=== PATIENT | female | born 1975 | race Two or more races ===

== ENCOUNTER 2021-10-23 12:02 | Emergency (ER) | payer SELFPAY ==
[2021-10-23 12:30] VITALS: BP 141/85; PULSE 80; RESP 16; TEMP 36.8; O2SAT 100
--- NOTE | 2021-10-23 12:54 | ED.GENADULT ---
HPI - General Adult General Chief complaint: Urogenital-Female Stated complaint: Lower Back Pain,Possible UTI Source: patient Mode of arrival: ambulatory Limitations: no limitations History of Present Illness HPI narrative: Pleasant 46 y/o female. PMHx Non-contributory. Presents to [facility] today with acute complaints of urinary frequency, bladder 'pressure', as well as generalized lower back pain for the past 72 hours. She notes a concern for possible UTI. No fevers, chills. Denies abdominal pain, N/V. No hematuria has been relayed. She describes her back pain as generalized aching, not isolated to unilateral flanks. No vaginal discharge or pelvic pain. Client has been taking OTC cranberry pills with subtherapeutic relief. She is without additional acute c/o illness upon PE. Related Data Allergies Allergy/AdvReac Type Severity Reaction Status Date / Time Penicillins Allergy Unknown Verified 10/23/21 12:39 Review of Systems Review of Systems: CONSTITUTIONAL: Denies fever, chills, sweats. EYES: Denies visual changes, redness, discharge. ENT: Denies rhinorrhea, congestion, sore throat, otalgia. CARDIOVASCULAR: Denies chest pain, palpitations, edema. RESPIRATORY: Denies dyspnea, wheezing, cough GASTROINTESTINAL: Denies abdominal pain, nausea, vomiting, diarrhea. GENITOURINARY: Denies dysuria, hematuria, abnormal discharge. Positive urinary frequency and pressure. SKIN: Denies rash or itching. MUSCULOSKELETAL:back pain. No joint pain, or myalgia. NEUROLOGIC: Denies numbness, or focal weakness. PSYCHIATRIC: Denies anxiety or depression. All systems reviewed & are unremarkable except as noted in HPI and below Exam Narrative: GENERAL: This is a well-nourished, well-developed adult, in no apparent distress. HEAD: normocephalic, atraumatic. EYES: PERRL. Sclera clear/white. EARS: External ears normal, auditory canals clear and without drainage, TMs normal. NOSE: External nose normal. No obstruction, nares patent. THROAT: Mucous membranes moist, posterior pharynx clear. No exudates. NECK: Neck supple, non-tender without lymphadenopathy, masses or thyromegaly. CARDIOVASCULAR: Regular rate and rhythm without murmurs, gallops, or rubs. RESPIRATORY: Clear to auscultation. Breath sounds equal bilaterally. No wheezes, rales, or rhonchi. GASTROINTESTINAL: Abdomen soft, non-tender, nondistended. Bowel sounds are active. No guarding. No CVA tenderness. No signs of acute abdomen. SKIN: warm, intact with no suspicious lesions or rash, good texture and turgor. NEURO: Alert, active, and age appropriate. No focal neurologic deficits. EXTREMITIES: Negative. Course Course Level of Care: Express Care Visit Vital Signs Vital signs: Vital Signs Temperature 36.8 C 10/23/21 12:30 Pulse Rate 80 10/23/21 12:30 Respiratory Rate 16 10/23/21 12:30 Blood Pressure 141/85 H 10/23/21 12:30 Pulse Oximetry 100 10/23/21 12:30 Temperature 36.8 C 10/23/21 12:30 Pulse Rate 80 10/23/21 12:30 Respiratory Rate 16 10/23/21 12:30 Blood Pressure 141/85 H 10/23/21 12:30 Pulse Oximetry 100 10/23/21 12:30 The patient has been informed that they may have pre-hypertension or Hypertension based on a BP reading in the clinic. It is recommended that the patient call the primary care provider listed on their discharge instructions or a physician of their choice as soon as possible (within 1-2week) to arrange follow up for further evaluation of possible pre-hypertension or hypertension. Medical Decision Making MDM Narrative Medical decision making narrative: -Urinary manifestations > 48 hours. -Afebrile, non-tachycardic, appears non-toxic. -No signs of acute abdomen, no appreciable CVA tenderness. -Urine Dipstick positive leukocytes. Sent for Cx analysis. -Macrobid 100 PO BID X 10 days, pending Cx reports. -IBU 800 PO TID PRN. -PCP F/U 1WK. -ER W/Emergent health status changes. Client agrees. Differential Diagnosis
== END 2021-10-23 12:59 | disposition home or self-care (01) ==
PROVIDERS: Emergency Provider Nurse Practitioner Adult Health
DX: N39.0 Urinary tract infection, site not specified (principal)
CPT/HCPCS: 81003; 87086; 99203; G0463

== ENCOUNTER 2023-12-25 12:00 | Emergency (ER) | payer OTHER, SELFPAY ==
[2023-12-25 12:16] VITALS: BP 121/78; PULSE 69; RESP 20; TEMP 36.6; O2SAT 98
--- NOTE | 2023-12-25 12:19 | ED.EYEPROB ---
HPI - Eye Problem General Chief complaint: Eye Problems Stated complaint: rt eye irritation Time Seen by Provider: 12/25/23 12:26 Source: patient Mode of arrival: ambulatory Limitations: no limitations History of Present Illness HPI Narrative: 48-year-old female presented for complaint of right upper eyelid swelling since yesterday morning. She states she woke up to find eye swollen. She endorses mild tenderness when she touches the inner canthus of the eye. Denies injury, allergies, or changes to any makeup. She denies significant drainage, vision changes, photophobia, or itching. No treatment prior to arrival. Does not wear contact lenses. chief complaint: eye pain Related Data Home Medications Medication Instructions Recorded Confirmed sumatriptan succinate 100 mg tablet 100 mg PO PRN PRN Migraine Headache 12/25/23 12/25/23 Allergies Allergy/AdvReac Type Severity Reaction Status Date / Time Penicillins AdvReac Mild Hives Verified 12/25/23 12:14 Review of Systems Review of Systems: CONSTITUTIONAL: Denies body aches, fever, chills EYES:Endorses swelling, redness to right eye; denies FB sensation, photophobia, pain, visual changes ENT: Denies rhinorrhea, congestion, sore throat, or otalgia. CARDIOVASCULAR: Denies chest pain, palpitations RESPIRATORY: Denies cough or dyspnea. SKIN: Denies rash, itching, or wounds. MUSCULOSKELETAL: Denies back pain, joint pain, or myalgia. NEUROLOGIC: Denies headache, numbness, tingling, or weakness. All systems reviewed & are unremarkable except as noted in HPI and below PMFSH Comments At time of signature, I have reviewed and agree with nursing past medical, surgical, social and family history unless otherwise noted. Please see nursing chart for further information. There is no relevant family history pertinent to the presenting complaint Exam Narrative: GENERAL: Well-appearing HEAD: Normocephalic, atraumatic. EYES: mild right conjunctival injection and yellow drainage, moderate right upper eye lid swelling without apparent stye formation; mild tenderness with palpation to inner canthus, mild dry scaly skin to inner canthus. PERRLA, EOMI. Lid eversion shows no foreign body. ENT: Mucous membranes pink and moist. No rhinorrhea. CHEST: Clear to auscultation. HEART: Regular rate and rhythm. ABDOMEN: Soft, nontender, nondistended SKIN: Warm, dry, no rash. Normal skin turgor. NEURO: No focal deficits. Alert and oriented x3 PSYCH: Normal affect. Course Course Emergency Course: Patient is aware of diagnosis, understands and agrees to treatment plan. Anticipatory guidance given. Patient agrees to follow-up as directed and is aware of reasons to seek care at the emergency department. Portions of this record may have been created with voice recognition software Level of Care: Express Care Visit Vital Signs Vital signs: Vital Signs Temperature 97.8 F 12/25/23 12:16 Pulse Rate 69 12/25/23 12:16 Respiratory Rate 20 12/25/23 12:16 Blood Pressure 121/78 12/25/23 12:16 Pulse Oximetry 98 12/25/23 12:16 Oxygen Delivery Room Air 12/25/23 12:16 Temperature 97.8 F 12/25/23 12:16 Pulse Rate 69 12/25/23 12:16 Respiratory Rate 20 12/25/23 12:16 Blood Pressure 121/78 12/25/23 12:16 Pulse Oximetry 98 12/25/23 12:16 Oxygen Delivery Room Air 12/25/23 12:16 MDM - Eye Problem MDM Narrative Medical decision making narrative: Discussed physical exam findings and possible etiologies; no apparent stye, will treat for conjunctivitis. Advised supportive measures and signs/symptoms to go to the ER. Pt is appropriate for outpt treatment and f/u. Differential Diagnosis Differential diagnosis: Likely corneal abrasion, conjunctivitis, acute iritis, periorbital cellulitis and other Discharge Plan Discharge Clinical Impression: Swelling of eyelid Qualifiers: Laterality: right Qualified Code(s): H02.843 - Edema of right eye, u
== END 2023-12-25 12:41 | disposition home or self-care (01) ==
PROVIDERS: Emergency Provider Nurse Practitioner Family; PCP Family Medicine
DX: H02.841 Edema of right upper eyelid (principal); E78.00 Pure hypercholesterolemia, unspecified; I10 Essential (primary) hypertension; Z86.16 Personal history of COVID-19; K21.9 Gastro-esophageal reflux disease without esophagitis; G25.81 Restless legs syndrome
CPT/HCPCS: 99213; G0463

== ENCOUNTER 2025-05-10 11:00 | Outpatient (RCR) | payer OTHER, SELFPAY ==
--- NOTE | 2025-03-18 16:09 | PTOPEVAL1 ---
Assessment and note entered by Breana Oreilly, PT Evaluation Information Assessment Status Evaluation Diagnosis mid back pain ICD-10 Condition Codes (PT) Pain in Thoracic Spine M54.6 Onset 2019 Subjective Information Pt presents to physical therapy this date with reports of mid back pain that worsens with prolonged activity. She reports the discomfort is on the R side of her back near her bra-line. With prolonged walking, standing, or activities around her home especially vacuuming greater than 30 minutes the pain becomes unbearable. She reports the discomfort is sharp in nature and often radiates to the front of her ribcage. She also reports the pain can shoot up toward her shoulder. She notes improvements in pain if she lays supine on a hard surface. 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 She denies a certain mechanism of injury but thinks the years of cleaning relates to her pain. She gets none to mild relief with muscle relaxers, has not sought other means of treatment prior to todays session. She reports she has to wait until she completes PT before her insurance will approve the MRI. Reported Pain Level Pain Score 4: Self Report Assessment PT Clinical Summary Pt presents to clinic this date with reports of chronic mid back pain of insidious onset starting back in 2019. The patient demonstrates posterior chain weakness, abnormal posture, limited thoracic ROM, and pain with functional movements that limit her ability to perform ADLs. The pt. would benefit from continued skilled physical therapy services tp address the above listed deficits and return to her PLOF. HEP instructed and written handout provided, exercise was tolerated well with no adverse effects to note post-session. Pt was educated on importance of adherence to HEP. Pt was also educated on anatomy, prognosis, home modalities, and PT POC. Plan of Care Interventions Electrical Stimulation,Gait Training,Hot Pack/Cold Pack,Manual Therapy,Neuro Re-education,Patient/ Caregiver Education,Therapeutic Activities, Therapeutic Exercise Other Interventions dry needling PT Services Indicated Yes These treatments will address the objective and functional deficits as defined above. The patient will be advanced safely and appropriately in order for the patient to progress towards his/her prior level of function. Additional exercises will be introduced and as well as a comprehensive home exercise program upon discharge, if needed, ?to ensure carryover of functional gains achieved in the clinic. This treatment plan has been reviewed and agreement upon by the patient.
--- NOTE | 2025-03-18 16:09 | OPREHPOC ---
Outpatient Therapy Plan of Care This is a Multidisciplinary Plan of Care that may contain components documented by all disciplines (PT, OT, and ST.) PT Problem 1 PT Problem #1 Knowledge Deficit PT Goal 1 Goal / Goal Update Pt. to demonstrate independence with HEP for improved self-reliance of symptom management. Target Visit 4 PT Problem 2 PT Problem #2 Pain PT Goal 1 Goal / Goal Update 1. Pt. to report improved standing tolerance of >= 45 minutes with pain <=4/10 for increased ADL endurance. 2. Pt. to improve outcome measure score on the Back Index by 10 points or greater to show improvements in pt/ quality of life. Target Visit 12 PT Problem 3 PT Problem #3 Impaired Strength PT Goal 1 Goal / Goal Update Pt. to demonstrate posterior shoulder strength >=4 -/5 for improved stability and postural improvements. Target Visit 12 PT Goal 1 Goal / Goal Update Pt. to demonstrate an increase of thoracic rotation ROM to >=50% of normal to improve mechanics required for vacuuming.
--- NOTE | 2025-05-10 11:40 | PTOPDC ---
Assessment and note entered by Breana Oreilly, PT Evaluation Information Assessment Status Evaluation Diagnosis mid back pain ICD-10 Condition Codes (PT) Pain in Thoracic Spine M54.6 Onset 2018 Subjective Information Pt continues to report mid back pain that worsens with prolonged activity. With prolonged walking, standing, or activities around her home especially vacuuming greater than >60 minutes the pain becomes unbearable which is improved from her IE. She will have someone massage her back or try stretching to help alleviate her pain. Overall since starting therapy the pt reports continued fluctuations in her pain levels and tolerance to ADLs. She will have a few days of less intense pain but then it comes right back. Reported Pain Level Pain Score 0: Self Report Assessment PT Clinical Summary Patient's condition has made little to no advancements in symptoms, mobility, strength, and functional tolerance to ADLs after 11 sessions of PT. Pt's PT goals remain unmet with little to no progress made towards them. Patient to DC from PT this date and continue with HEP as instructed. Pt to contact PT or PCP if questions or concerns arise. Pt does feel empowered leaving todays session that she has the tools and resources necessary in her HEP to manage her current symptoms while continuing to investigate the etiology of her signs and symptoms. Plan of Care PT Services Indicated Yes
== END 2025-05-10 15:57 | disposition home or self-care (01) ==
LOC: ANHPT 11:00
PROVIDERS: PCP Family Medicine; Visit Provider Internal Medicine Rheumatology
DX: M54.6 Pain in thoracic spine (principal)
CPT/HCPCS: 97014; 97035; 97110; 97140; 97161; 97530; G0283